=== PATIENT | female | born 1985 | race Caucasian/White ===

== ENCOUNTER 2018-08-27 15:10 | Inpatient (IN) | payer OTHER ==
[2018-08-27] MEDS ORDERED: Buffered Lidocaine 1% SYRIN* 1 ML/SYRINGE INTRADERM ONE (15:35)
[2018-08-27] MEDS ORDERED: Lactated Ringers 1000 ML Bag* 1,000 ML IV ONE (15:35)
--- NOTE | 2018-08-27 15:45 | HP ---
General Information - Reason for Visit 33 yo at 40 4/7 weeks with contractions - General Information Maternal Age: 29 Grav: 1 Para: 0 SAB: 0 IEA: 0 Estimated Due Date: 05/07/15 Determined By: Early Ultrasound Gestational Age in Weeks/Days: 40/4 Maternal Blood Type and Rh: O Positive - Results this Serology/RPR Result: Non-Reactive Rubella Result: Immune HBsAg Result: Negative HIV Result: Negative GBS Culture Result: Negative Past Medical History Delivery History: Hx Uncomplicated Vaginal Delivery Pertinent Past Medical History: See Records Past Medical History Comment: Eczema Nonuclear dyspepsia Irritable Bowel Syndrome Pertinent Past Surgical History: See Records Past Surgical History Comment: Breast biopsy 2017 - left Pertinent Family History: See Records Family History Comment: Mother: asthma, hypercholesterolemia - Antepartal Records Antepartal Records: Reviewed, Uncomplicated Review of Systems Constitutional: Uncomfortable CV Complaint: No Respiratory: Shortness of Breath: No Gastrointestinal: No Nausea/Vomiting, Normal Bowel Movement Genitourinary: No Dysuria, No Bleeding, No Leaking Fluid Musculoskeletal: No Epigastric Pain, Contractions Neurological: No Headache, No Visual Changes Movement: Normal Exam Allergies/Adverse Reactions: Allergies MS Hamel [Hamel] Allergy (Mild, Verified 09/14/16 13:58) See Comment 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 Advised by doctor to inform doctors prior to any joint replacments. seasonal Allergy (Mild, Uncoded 09/14/16 13:58) See Comment Patient reports seasonal allergies with occassional asthmatic symptoms. Uses rescue inhaler. B/P: 126/89, P: 97, R: 20, T: 98.1 - Measurements Pre- Weight: 3.88 oz - Exam Breast: Breast Exam Deferred CVA: No CVA Tenderness Extremities: No Edema Heart: Normal Rhythm/Heart Sounds HEENT: No Significant Findings Lungs: Clear Bilaterally Reflexes: DTR 2+ Thyroid: No Thyromegaly - Abdominal Exam Abdomen Exam: Non-Tender, Fundal Height Consistent with Dates - Ultrasound/Biophysical Profile Ultrasound Status: Not Done Targeted Exam Findings See L&D Outpatient Visit Provider Note for Findings: N/A Estimated Weight: 7.5 lb by tona's Cervical Exam: 3cm Effacement: 90% Station: -1 Presenting Part: Vertex Membrane Status: Intact Bleeding/Discharge: None EFM Findings - External Monitor Findings Baseline Heart Rate: 130 External Monitor Findings: Accelerations Present, No Pattern of Variable or Late Decelerations, Variability Moderate, Baseline Stable Contractions: Regular, 45-90 Seconds Contraction Frequency: 2-4 min Assessment/Plan - Assessment A: IUP at 40 4/7 weeks Category I FHR GBS negative Early active labor P: Admit to inpatient Discussed Evelyn's plan, she prefers not to be offered pain medication Reassess in 2-3 hrs or sooner as needed Anticipate SVB - Plan Plan: Admit - Anticipate Vaginal Delivery - Date/Time of Admission Date of Admission: 08/27/18 Time of Admission: 15:15
[2018-08-27] MEDS ORDERED: Lactated Ringers 1000 ML Bag* 1,000 ML IV SCH ×2 (16:00→20:00)
[2018-08-27] MEDS ORDERED: OXYTOCIN* 10 UNITS/ML 1 ML VIAL ONE (19:02)
--- NOTE | 2018-08-27 19:08 | PROCNOTE ---
[facility] OB: Delivery Note - Delivery A Date of : 08/27/18 Time of : 18:39 Winner Sex: Male Score 1 Minute: 8 Score 5 Minutes: 9 Gestational Age in Weeks and Days at Delivery: 40 Weeks and 4 Days Delivery Method: Spontaneous Vaginal Labor: Spontaneous Did Patient attempt ?: N/A, No Previous Amniotic Fluid: Clear Estimated Blood Loss: 450 Anesthesia/Analgesia: None Delivered By: Joao Ling - Assisted by Cherry Camarillo CNM - Nursery Level of Nursery: Regular/Bedside - Perineum Perineal Injury: Abrasion Only - Not Repaired Perineal Repair: None - Events Delivery Events of Note: Pitocin Only After Delivery - 10units IM - Additional Delivery Notes Additional Delivery Notes: Pt presented in active labor at term. Labored in the tub until strong urge to push. Moved to bed in hands and knees position. Spontaneous onset maternal pushing. Spontaneous rupture of membranes to clear fluid. Active phase 7 hours, 39 min. Pushed x 24 min. Head delivered direct OA in hands and knees position. Shoulders did not follow despite strong maternal push. Shoulder dystocia x 30 seconds resolved with repositioning mom to Win, strong maternal push and delivery of posterior arm by CNM. Winner initially stunned. Responded well to tactile stimulation and delayed cord clamping. Apgars 8/9. Facial bruising noted. Infant moving both arms equally immediately after delivery. Cord clamped x 2 and cut by FOB after pulsations ceased. Spontaneous delivery intact placenta. Membranes complete. Uterus initially atonic with brisk bleeding. Responded well to fundal massage and IM pitocin x 1. Bleeding resolved. Perineum intact, only a small introital abrasion noted. Not repaired. EBL 450mL. At time of note mother and in stable condition. Planning to breast feed.
[2018-08-27] MEDS ORDERED: OXYTOCIN* 10 UNITS/ML 1 ML VIAL IM ONE (19:10)
[2018-08-27] MEDS ORDERED: Dibucaine 1% 28.35 GM TUBE PR PRN (19:10)
[2018-08-27] MEDS ORDERED: Witch Hazel PAD* JAR TOPICAL PRN (19:10)
[2018-08-27] MEDS ORDERED: Glycerin ADULT SUPP PR PRN (19:10)
[2018-08-27] MEDS ORDERED: Acetaminophen TAB* 325 MG PO PRN (19:10)
[2018-08-27] MEDS ORDERED: Ibuprofen TAB* 600 MG ONE (19:27)
[2018-08-27] MEDS: Ibuprofen TAB* 600 MG PO PRN (19:28)
[2018-08-27] MEDS ORDERED: Simethicone TAB* 80 MG TAB.CHEW PO SCH (21:00)
[2018-08-28] MEDS: Ibuprofen TAB* 600 MG PO PRN (04:20)
[2018-08-28] MEDS: Docusate CAP* 100 MG PO SCH ×4 (04:24→21:04)
[2018-08-28 08:28] LABS: ABS Basophils 0.1 10^3/ul (0-0.2); ABS Eosinophils 0.1 10^3/ul (0-0.6); ABS Lymphocytes 1.7 10^3/ul (1.0-4.8); ABS Nucleated RBC 0 10^3/ul; Eosinophil % 0.6 %; Hematocrit 39 % (33-41); Hemoglobin 13.4 g/dL (12.0-16.0); Mean Corpuscular HGB Conc 34 g/dL (31-36); Mean Corpuscular Hemoglobin 31 pg (27-31); Mean Corpuscular Volume 91 fL (80-97); Mean Platelet Volume 8.8 fL (7.4-10.4); Nucleated Red Blood Cells % 0; Platelet Count 205 10^3/uL (150-450); Red Blood Count 4.31 10^6 /uL (3.70-4.87); Red Cell Distribution Width 13 % (10.5-15); White Blood Count 13.8 10^3/uL (3.5-10.8)
[2018-08-28] MEDS ORDERED: Ferrous Gluconate TAB* 324 MG TAB PO SCH (09:00)
[2018-08-28 23:44] VITALS: BP 147/79
[2018-08-29] MEDS: Docusate CAP* 100 MG PO SCH (08:43)
== END 2018-08-29 10:54 | disposition home or self-care (01) | DRG 806 ==
LOC: MCHOBOUT 15:10 → MCHOB 15:35
PROVIDERS: ADMIT Midwife; ATTEND Midwife
PROC: 10E0XZZ Delivery of Products of Conception, External Approach (ICD-10-PCS; principal; 2018-08-27)
PROC: 4A1HXCZ Monitoring of Products of Conception, Cardiac Rate, External Approach (ICD-10-PCS; 2018-08-27)
DX: O48.0 Post-term pregnancy (principal); O72.1 Other immediate postpartum hemorrhage; Z37.0 Single live birth; O69.1XX0 Labor and delivery complicated by cord around neck, with compression, not applicable or unspecified; Z3A.40 40 weeks gestation of pregnancy; O66.0 Obstructed labor due to shoulder dystocia; O71.82 Other specified trauma to perineum and vulva; Z88.8 Allergy status to other drugs, medicaments and biological substances; Z91.018 Allergy to other foods
CPT/HCPCS: 36415; 85025; A9270-GY; J2590